=== PATIENT | male | born 1980 | race Caucasian/White ===

== ENCOUNTER 2016-11-25 18:54 | Emergency (ER) | payer OTHER ==
[2016-11-25] MEDS ORDERED: CLEOCIN 150 MG CAPSULE PO ONE (19:13)
--- NOTE | 2016-11-25 19:14 | ERPHSYRPT ---
- History of Present Illness Time Seen by Provider: 11/25/16 19:05 Source: patient Exam Limitations: no limitations Patient Subjective Stated Complaint: "I have had this irritation on my head for about 5 months and it is really itchy and irritating. I also have these jesenia in my shoulder that have been there for about 6 months." Triage Nursing Assessment: Pt alert and oriented X 3, skin pwd pt ambulates without difficutly, able to speak in full sentences. redness noted opn pt head. Physician History: FOR THE PAST 5 MONTHS PT HAS HAD A PRURITIC RASH ON THE SCALP AND EARACHES FOR THE PAST 9 MONTHS. PT DENIES FEVER, VOMITING, CHEST PAIN, SHORTNESS OF AIR. Allergies/Adverse Reactions: codeine [Codeine] Allergy (Intermediate, Verified 02/05/16 17:31) Hives Penicillins Allergy (Intermediate, Verified 11/25/16 19:08) Irregular Heart Beat irregular heart beat, hives Hx Tetanus, Diphtheria Vaccination/Date Given: Yes Hx Influenza Vaccination/Date Given: No Hx Pneumococcal Vaccination/Date Given: No Immunizations Up to Date: Yes - Review of Systems Constitutional: No Fever Ears, Nose, & Throat: Ear Pain Respiratory: No Dyspnea Cardiac: No Chest Pain Skin: Pruritis, Rash (ON SCALP) All Other Systems: Reviewed and Negative - Past Medical History Pertinent Past Medical History: Yes Neurological History: No Pertinent History ENT History: No Pertinent History Cardiac History: No Pertinent History Respiratory History: No Pertinent History Endocrine Medical History: No Pertinent History Musculoskeletal History: Other GI Medical History: No Pertinent History History: No Pertinent History Psycho-Social History: No Pertinent History Male Reproductive Disorders: No Pertinent History Other Medical History: 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, 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 - Past Surgical History Past Surgical History: No Neuro Surgical History: No Pertinent History Cardiac: No Pertinent History Respiratory: No Pertinent History Gastrointestinal: No Pertinent History Genitourinary: No Pertinent History Musculoskeletal: No Pertinent History Male Surgical History: No Pertinent History - Social History Smoking Status: Never smoker How long have you smoked: 26 yrs Exposure to second hand smoke: No Drug Use: narcotics Patient Lives Alone: Yes - Nursing Vital Signs Nursing Vital Signs: Initial Vital Signs Temperature 97.9 F 11/25/16 18:58 Pulse Rate 67 11/25/16 18:58 Respiratory Rate 18 11/25/16 18:58 Blood Pressure 143/97 11/25/16 18:58 O2 Sat by Pulse Oximetry 99 11/25/16 18:58 Pain Scale Pain Intensity 0 - Physical Exam General Appearance: alert Eye Exam: PERRL/EOMI Ears, Nose, Throat Exam: TMs normal, moist mucous membranes, pharyngeal erythema Neck Exam: full range of motion Respiratory Exam: lungs clear Cardiovascular Exam: normal heart sounds Back Exam: normal range of motion Extremity Exam: No pedal edema Neurologic Exam: alert, cooperative Skin Exam: rash (ERYTHEMATOUS SCABBED LESIONS ON SCALP LEFT > OCCIPUT.), other ( HEALED SCAR ON RIGHT UPPER CHEST.) SpO2 Interpretation: normal SpO2: 99 Oxygen Delivery: Room Air - Course Nursing assessment & vital signs reviewed: Yes Ordered Tests: Active Orders 24 hr Category Date Time Status Suture, Staple Removal .as ordered Care 11/25/16 19:05 Active Medication Summary Discontinued Medications Generic Name Dose Route Start Last Admin Trade Name Freq PRN Reason Stop Dose Admin Clindamycin HCl 300 mg 11/25/16 19:13 Cleocin 150 Mg Capsule PO 11/25/16 19:14 STAT ONE - Departure Time of Disposition: 19:27 Departure Disposition: Home Clinical Impression: IMPETIGO, PHARYNGITIS Condition: Stable Critical Care Time: No Referrals: ALEXANDER GARCIA [Primary Care Provider] - Instructions: Impetigo, Pharyngitis/Tonsillopharyngitis -- Adult Additional Instructions: FOLLOW UP WITH PRIVATE DOCTOR TOMORROW. Prescriptions: Hydroxyzine HCl 25 mg [Atarax 25 mg] 25 mg PO Q4H PRN PRN #30 tablet PRN Reason: Itching Clindamycin HCl 300 mg PO Q6H #40 capsule
[2016-11-25] MEDS ORDERED: CLEOCIN 150 MG CAPSULE ONE (19:18)
[2016-11-25 19:36] VITALS: BP 128/70; PULSE 89; O2SAT 100
== END 2016-11-25 19:39 | disposition home or self-care (01) ==
LOC: ED 18:54
DX: L01.00 Impetigo, unspecified (principal); J02.9 Acute pharyngitis, unspecified
CPT/HCPCS: 99283; A9270-GY

== ENCOUNTER 2016-12-24 00:46 | Emergency (ER) | payer OTHER ==
--- NOTE | 2016-12-24 01:05 | ERPHSYRPT ---
- History of Present Illness Time Seen by Provider: 12/24/16 00:59 Source: patient Physician History: 36-year-old white male arrives with complaint of a large lesion on his right forearm distally and on the radial aspect symptoms for 4 days patient states he scraped his arm against some wood 4 days ago. She complains of pain in the right forearm erythematous the right forearm he has approximately 3 cm raised lesion on the right distal forearm radial aspect with surrounding erythema. He states he has not had any fevers. Patient does state that he had been on clindamycin recently but is not taking it routinely. Past medical history includes hepatitis, IV drug use,. Patient has had a history of a forklift accident with spleen and liver damage in the past. Past surgical history is negative Occurred: days ago (4 days ago) Method of Injury: other (abraded right forearm on piece of wood in his garage 4 days ago) Extremities Pain Location: forearm: right Modifying Factors: Improves With: nothing Associated Symptoms: other (raised erythematous lesion right radial aspect distal forearm), No back pain, No chills, No chest discomfort, No chest pain, No dyspnea, No fever, No jaw pain, No nausea, No neck pain, No sweating, No short of breath, No vomiting Allergies/Adverse Reactions: codeine [Codeine] Allergy (Intermediate, Verified 02/05/16 17:31) Hives Penicillins Allergy (Intermediate, Verified 11/25/16 19:08) Irregular Heart Beat irregular heart beat, hives Hx Tetanus, Diphtheria Vaccination/Date Given: Yes Hx Influenza Vaccination/Date Given: No Hx Pneumococcal Vaccination/Date Given: No - Review of Systems Constitutional: No Fever, No Chills Eyes: No Symptoms Ears, Nose, & Throat: No Symptoms Respiratory: No Cough, No Dyspnea Cardiac: No Chest Pain, No Edema, No Syncope Abdominal/Gastrointestinal: No Abdominal Pain, No Nausea, No Vomiting, No Diarrhea Genitourinary Symptoms: No Dysuria Musculoskeletal: Other (raised lesion right distal forearm) Skin: Other (erythema and raised lesion right distal forearm radial aspect) Neurological: No Dizziness, No Focal Weakness, No Sensory Changes Psychological: No Symptoms Endocrine: No Symptoms All Other Systems: Reviewed and Negative - Past Medical History Pertinent Past Medical History: Yes Neurological History: No Pertinent History ENT History: No Pertinent History Cardiac History: No Pertinent History Respiratory History: No Pertinent History Endocrine Medical History: No Pertinent History Musculoskeletal History: Other GI Medical History: No Pertinent History History: No Pertinent History Psycho-Social History: No Pertinent History Male Reproductive Disorders: No Pertinent History Other Medical History: 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, 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 - Past Surgical History Past Surgical History: No Neuro Surgical History: No Pertinent History Cardiac: No Pertinent History Respiratory: No Pertinent History Gastrointestinal: No Pertinent History Genitourinary: No Pertinent History Musculoskeletal: No Pertinent History Male Surgical History: No Pertinent History - Social History Smoking Status: Never smoker How long have you smoked: 26 yrs Exposure to second hand smoke: No Drug Use: narcotics Patient Lives Alone: Yes - Nursing Vital Signs Nursing Vital Signs: Initial Vital Signs Temperature 97.9 F 12/24/16 00:48 Pulse Rate 80 12/24/16 00:48 Respiratory Rate 18 12/24/16 00:48 Blood Pressure 125/65 12/24/16 00:48 O2 Sat by Pulse Oximetry 98 12/24/16 00:48 Pain Scale Pain Intensity 7 - Physical Exam General Appearance: mild distress Eyes, Ears, Nose, Throat Exam: moist mucous membranes Neck Exam: non-tender, supple Cardiovascular/Respiratory Exam: chest non-tender, normal breath sounds, regular rate/rhythm, no respiratory distress Abdominal Exam: non-tender, No guarding Back Exam: normal inspection, No vertebral tenderness Shoulder Exam: normal inspection, non-tender, no evidence of injury, normal ROM Elbow/Forearm Exam: No normal inspection (patient with alarge raisederythematous lesion radial aspect distal right forearm surrounding erythema and edema) Wrist Exam: normal inspection, non-tender, no evidence of injury, normal ROM Hand Exam: normal inspection, non-tender, no evidence of injury, normal ROM Neuro/Tendon Exam: normal sensation, normal motor functions Mental Status Exam: alert, oriented x 3, cooperative Skin Exam: other (3 cm raised area right distal forearm radial aspect with surrounding erythema) SpO2 Interpretation: normal (99%) - Course Nursing assessment & vital signs reviewed: Yes Ordered Tests: Active Orders 24 hr Category Date Time Status IV Insertion STAT Care 12/24/16 00:58 Active BLOOD CULTURE Stat Lab 12/24/16 01:06 Ordered BMP Stat Lab 12/24/16 01:06 Ordered CBC W DIFF Stat Lab 12/24/16 01:06 Ordered CULTURE,WOUND Stat Lab 12/24/16 01:06 Ordered Medication Summary Generic Name Dose Route Start Last Admin Trade Name Freq PRN Reason Stop Dose Admin Vancomycin HCl 250 mls @ 167 mls/hr 12/24/16 01:26 Vancomycin 1gm/ Ns 250ml IV 12/24/16 02:55 STAT ONE Discontinued Medications Generic Name Dose Route Start Last Admin Trade Name Freq PRN Reason Stop Dose Admin Lidocaine HCl 5 ml 12/24/16 01:06 Xylocaine 1% Hcl 20 Ml Mdv IJ 12/24/16 01:07 STAT ONE Lidocaine HCl Confirm 12/24/16 01:19 Xylocaine 1% Hcl 20 Ml Mdv Administered 12/24/16 01:20 Dose 1 ml .ROUTE .STK-MED ONE - Progress Progress: improved Progress Note: 12/24/16 01:04 This is a 36-year-old white male with history of prior IV drug use and hepatitis he arrives with a large 3 cm raised area on his right distal forearm radial aspect symptoms for 4 days he states he abraded this on wood in the garage, he denies IV drug use recently. Patient does have surrounding erythema to the area he is already on clindamycin but he has not been taking this regularly. Will go ahead and clean the area obtain blood culture CBC BMP wound cultures and attempt to open the area I need to get a. 12/24/16 01:23 Procedure I and D abscess. Right forearm. Abscess is sterilely cleansed by nurse. Abscess is anesthetized with 1% lidocaine. 18-gauge needle was used to aspirate a moderate amount of serosanguineous fluid. #11 blade was used to place approximately 1.5 cm incision into the abscess. Abscess was drained by gentle pressure. Wound is cleansed and dressing is applied by nurse. 12/24/16 01:25 patient is up-to-date on his tetanus last tetanus was one year ago - Departure Time of Disposition: 01:25 Departure Disposition: Home Clinical Impression: 3 cm abscess right forearm, Encounter for incision and drainage procedure Condition: Fair Critical Care Time: No Referrals: ALEXANDER GARCIA [Primary Care Provider] - Additional Instructions: Return home. Clean area daily and apply bacitracin until healed. Continue clindamycin as prescribed earlier by Dr. Landers. Follow-up with Dr. Garcia call tomorrow for an appointment. Return for acute distress or for severe symptoms, [place] 5/325 #10 one orally every 4-6 hours as needed for pain, Prescriptions: Hydrocodone Bit/Acetaminophen [[place] 5/325Mg] 1 tab PO Q4-6HPRN PRN #10 tablet PRN Reason: Pain
[2016-12-24] MEDS ORDERED: XYLOCAINE 1% HCL 20 ML MDV IJ ONE (01:06)
[2016-12-24] MEDS ORDERED: XYLOCAINE 1% HCL 20 ML MDV ONE (01:19)
[2016-12-24] MEDS ORDERED: Vancomycin 1GM/ Ns 250ML*** 250 ML IV ONE ×2 (01:26→01:31)
[2016-12-24 01:53] LABS: BASOPHIL % 0.2 % (0.0-0.4); Eosinophil % 2.2 % (0.00-5.0); Granulocytes % 68.4 % (36.0-66.0); Lymphocytes % 23.1 % (24.0-44.0); Mean Cell Volume 88.7 fl (78-100); Mean Corpuscular Hemoglobin 29.8 pg (26-32); Mean Platelet Volume 9.1 fl (6-9.5); Monocytes % 6.1 % (0.0-12.0); Platelet Count 321 K/mm3 (150-450); Red Blood Count 4.06 M/mm3 (4.1-5.6); Red Cell Distribution Width 12.9 % (11.5-14.0); White Blood Count 9.3 K/mm3 (4.0-10.5)
[2016-12-24 02:06] LABS: ANION GAP 11.6 MEQ/L (5-15); BLOOD UREA NITROGEN 11 mg/dL (9-20); CHLORIDE 102 mEq/L (98-107); Carbon Dioxide 26.5 mEq/L (21-32); Glucose 94 MG/DL (70-110); Potassium 3.8 mEq/L (3.5-5.1); SODIUM 136 mEq/L (136-145)
[2016-12-24] MEDS ORDERED: NORCO 5/325 MG PO ONE (02:12)
[2016-12-24 02:34] VITALS: O2SAT 99
[2016-12-24] MEDS ORDERED: NORCO 5/325 MG ONE (02:41)
[2016-12-24 03:25] VITALS: BP 118/70; PULSE 87
== END 2016-12-24 03:29 | disposition home or self-care (01) ==
LOC: ED 00:46
PROC: 0H9DXZZ Drainage of Right Lower Arm Skin, External Approach (ICD-10-PCS; principal; 2016-12-24)
DX: L02.413 Cutaneous abscess of right upper limb (principal)
CPT/HCPCS: 10060; 36000; 36415; 80048; 85025; 87040; 87070; 87077; 96365; 99284; J3370; A9270-GY

== ENCOUNTER 2016-12-27 16:20 | Emergency (ER) | payer OTHER ==
[2016-12-27] MEDS ORDERED: Sodium Chloride 0.9% 1000 ML 1,000 ML IV STA (16:44)
--- NOTE | 2016-12-27 17:07 | ERPHSYRPT ---
- History of Present Illness Time Seen by Provider: 12/27/16 17:02 Source: patient, EMS Exam Limitations: no limitations Patient Subjective Stated Complaint: pt brought to ed per ems-ems called to scene due to mother finding pt unresponsive et not breathing-narcan 2 mg intransal administered-pt woke up et responded well-pt reports finding a fentanyl patch-crushing it up et injecting it Triage Nursing Assessment: pt pale warm et dry upon arrival to [id number] to answer all questions correctly-various sores noted to pt head et face-pupils sluggish but responsive-pt able to move all extemities with ease Physician History: 36-year-old male with long history of narcotics abuse was injecting fentanyl patch, his mother saw him doing that, so she called ambulance. Ambulance medical psychotherapist on the way to the emergency room, gave him 2 ampules of Narcan, which made patient's low bit more coherent. While sitting in ER. Patient is alert, awake and was able to answer the questions. Patient has a long history of narcotic and other illicit drug abuse, history. He denies any other symptoms. Timing/Duration: today Associated Symptoms: denies symptoms Previous symptoms: same symptoms as today Allergies/Adverse Reactions: codeine [Codeine] Allergy (Intermediate, Verified 12/27/16 16:28) Hives Penicillins Allergy (Intermediate, Verified 12/27/16 16:28) Irregular Heart Beat irregular heart beat, hives Hx Tetanus, Diphtheria Vaccination/Date Given: Yes Hx Influenza Vaccination/Date Given: No Hx Pneumococcal Vaccination/Date Given: No Immunizations Up to Date: Yes - Past Medical History Pertinent Past Medical History: Yes Neurological History: No Pertinent History ENT History: No Pertinent History Cardiac History: No Pertinent History Respiratory History: No Pertinent History Endocrine Medical History: No Pertinent History Musculoskeletal History: Other GI Medical History: No Pertinent History History: No Pertinent History Psycho-Social History: No Pertinent History Male Reproductive Disorders: No Pertinent History Other Medical History: 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, - Past Surgical History Past Surgical History: No Neuro Surgical History: No Pertinent History Cardiac: No Pertinent History Respiratory: No Pertinent History Gastrointestinal: No Pertinent History Genitourinary: No Pertinent History Musculoskeletal: No Pertinent History Male Surgical History: No Pertinent History - Social History Smoking Status: Never smoker How long have you smoked: 26 yrs Exposure to second hand smoke: No Drug Use: methamphetamines, narcotics Patient Lives Alone: Yes - Review of Systems Constitutional: Lethargy Eyes: No Symptoms Ears, Nose, & Throat: No Symptoms Respiratory: No Symptoms Cardiac: No Symptoms Abdominal/Gastrointestinal: No Symptoms Genitourinary Symptoms: No Symptoms Musculoskeletal: No Symptoms Skin: No Symptoms Neurological: No Symptoms Psychological: No Symptoms Endocrine: No Symptoms Hematologic/Lymphatic: No Symptoms Immunological/Allergic: No Symptoms - Nursing Vital Signs Nursing Vital Signs: Initial Vital Signs Pulse Rate 87 12/27/16 16:22 Respiratory Rate 18 12/27/16 16:22 Blood Pressure 124/77 12/27/16 16:22 O2 Sat by Pulse Oximetry 97 12/27/16 16:22 Pain Scale Pain Intensity 0 - Physical Exam General Appearance: mild distress Eyes, Ears, Nose, Throat Exam: normal ENT inspection Neck Exam: normal inspection Respiratory Exam: normal breath sounds Cardiovascular Exam: regular rate/rhythm Gastrointestinal/Abdominal Exam: soft Extremities Exam: normal inspection Current Suicidality: denies suicide plan Neurological Exam: alert, calm Appearance: disheveled Behavior/Eye Contact/Speech: alert & cooperative Thoughts/Hallucinations: no apparent hallucination Skin Exam: normal color SpO2 Interpretation: normal SpO2: 97 Oxygen Delivery: Room Air - Course Nursing assessment & vital signs reviewed: Yes Ordered Tests: Active Orders 24 hr Category Date Time Status ACETAMINOPHEN Stat Lab 12/27/16 16:55 Completed CBC W DIFF Stat Lab 12/27/16 16:55 Completed CMP Stat Lab 12/27/16 16:55 Completed ETHYL ALCOHOL Stat Lab 12/27/16 16:55 Completed Lactic Acid Stat Lab 12/27/16 16:58 Completed SALICYLATE Stat Lab 12/27/16 16:55 Completed UA W/RFX UR CULTURE Stat Lab 12/27/16 18:00 Completed Urine Triage Profile Stat Lab 12/27/16 18:00 Received Medication Summary Discontinued Medications Generic Name Dose Route Start Last Admin Trade Name Freq PRN Reason Stop Dose Admin Sodium Chloride 1,000 mls @ 999 mls/hr 12/27/16 16:44 12/27/16 16:48 Sodium Chloride 0.9% 1000 Ml IV 12/27/16 17:44 999 mls/hr .Q1H1M STA Administration Sodium Chloride Confirm 12/27/16 17:15 Sodium Chloride 0.9% 1000 Ml Administered 12/27/16 17:16 Dose 1,000 mls @ ud .ROUTE .STK-MED ONE Lab/Rad Data: Laboratory Result Diagrams 12/27/16 16:55 12/27/16 16:55 Laboratory Results 12/27/16 12/27/16 12/27/16 Range/Units 18:00 16:58 16:55 WBC (4.0-10.5) K/mm3 RBC (4.1-5.6) M/mm3 Hgb (12.5-18.0) gm/dl Hct (42-50) % MCV (78-100) fl MCH (26-32) pg MCHC (32-36) g/dl RDW (11.5-14.0) % Plt Count (150-450) K/mm3 MPV (6-9.5) fl Gran % (36.0-66.0) % Lymphocytes % (24.0-44.0) % Monocytes % (0.0-12.0) % Eosinophils % (0.00-5.0) % Basophils % (0.0-0.4) % Basophils # (0-0.4) Sodium 139 (136-145) mEq/L Potassium 4.1 (3.5-5.1) mEq/L Chloride 103 (98-107) mEq/L Carbon Dioxide 28.1 (21-32) mEq/L Anion Gap 11.6 (5-15) MEQ/L BUN 12 (9-20) mg/dL Creatinine 0.87 (0.55-1.30) mg/dl Estimated GFR > 60 ML/MIN Glucose 113 H (70-110) MG/DL Lactic Acid 1.0 (0.4-2.0) Calcium 9.2 (8.5-10.1) mg/dL Total Bilirubin 0.40 (0.2-1.0) mg/dL AST 34 (15-37) U/L ALT 42 (12-78) U/L Alkaline Phosphatase 82 (46-116) U/L Serum Total Protein 7.8 (6.4-8.2) gm/dL Albumin 3.3 L (3.4-5.0) g/dL Ur Collection Type CLEAN CATCH Urine Color YELLOW (YELLOW) Urine Appearance CLEAR (CLEAR) Urine pH 8.0 (5-6) Ur Specific [place] 1.005 (1.005-1.025) Urine Protein NEGATIVE (Negative) Urine Ketones NEGATIVE (NEGATIVE) Urine Blood NEGATIVE (0-5) Pravin/ul Urine Nitrite NEGATIVE (NEGATIVE) Urine Bilirubin NEGATIVE (NEGATIVE) Urine Urobilinogen 1 (0-1) mg/dL Ur Leukocyte Esterase NEGATIVE (NEGATIVE) Urine Glucose NEGATIVE (NEGATIVE) mg/dL Salicylates < 2.8 L (2.8-20.0) mg/dl Acetaminophen < 2.0 L (10-30) ug/ml Ethyl Alcohol < 0.010 (0.00-0.01) % Specimen Received 12/27/16:1805 12/27/16 Range/Units 16:55 WBC 5.1 (4.0-10.5) K/mm3 RBC 3.97 L (4.1-5.6) M/mm3 Hgb 11.8 L (12.5-18.0) gm/dl Hct 35.5 L (42-50) % MCV 89.4 (78-100) fl MCH 29.7 (26-32) pg MCHC 33.2 (32-36) g/dl RDW 13.0 (11.5-14.0) % Plt Count 320 (150-450) K/mm3 MPV 8.5 (6-9.5) fl Gran % 62.3 (36.0-66.0) % Lymphocytes % 26.0 (24.0-44.0) % Monocytes % 7.8 (0.0-12.0) % Eosinophils % 3.3 (0.00-5.0) % Basophils % 0.6 (0.0-0.4) % Basophils # 0.03 (0-0.4) Sodium (136-145) mEq/L Potassium (3.5-5.1) mEq/L Chloride (98-107) mEq/L Carbon Dioxide (21-32) mEq/L Anion Gap (5-15) MEQ/L BUN (9-20) mg/dL Creatinine (0.55-1.30) mg/dl Estimated GFR ML/MIN Glucose (70-110) MG/DL Lactic Acid (0.4-2.0) Calcium (8.5-10.1) mg/dL Total Bilirubin (0.2-1.0) mg/dL AST (15-37) U/L ALT (12-78) U/L Alkaline Phosphatase (46-116) U/L Serum Total Protein (6.4-8.2) gm/dL Albumin (3.4-5.0) g/dL Ur Collection Type Urine Color (YELLOW) Urine Appearance (CLEAR) Urine pH (5-6) Ur Specific [place] (1.005-1.025) Urine Protein (Negative) Urine Ketones (NEGATIVE) Urine Blood (0-5) Pravin/ul Urine Nitrite (NEGATIVE) Urine Bilirubin (NEGATIVE) Urine Urobilinogen (0-1) mg/dL Ur Leukocyte Esterase (NEGATIVE) Urine Glucose (NEGATIVE) mg/dL Salicylates (2.8-20.0) mg/dl Acetaminophen (10-30) ug/ml Ethyl Alcohol (0.00-0.01) % Specimen Received - Progress Progress: improved Progress Note: 12/27/16 17:53 Patient is much more alert, awake. He is counseled about not using IV narcotics. Patient states with his mother and his 2 children. Patient understood consequences about using illicit drugs. [facility] phone number given for to join rehabilitation. Verbalize instructions understood. Discussed with : Ariel Will see patient in: hospital (observation) Counseled pt/family regarding: drug and/or alcohol abuse, diagnosis, smoking cessation - Departure Time of Disposition: 17:55 Departure Disposition: Observation Clinical Impression: Illicit drug use, Narcotic abuse Condition: Stable Critical Care Time: Yes Critical Care Time(excluding separately billable procedures): 30-74 minutes Referrals: ALEXANDER GARCIA [Primary Care Provider] - Followup in 3 days w/ PCP Instructions: Drug Abuse and Drug Addiction Additional Instructions: Your strongly advised not to abuse narcotics. Please follow up at [facility] for rehabilitation. Follow-up with your physician in next 1-2 days. If your symptoms recur, come back to the emergency room. Prescriptions: Doxycycline Hyclate 100 mg PO BID #20 tablet
[2016-12-27 17:08] LABS: BASOPHIL % 0.6 % (0.0-0.4); Eosinophil % 3.3 % (0.00-5.0); Granulocytes % 62.3 % (36.0-66.0); Mean Cell Volume 89.4 fl (78-100); Mean Corpuscular Hemoglobin 29.7 pg (26-32); Mean Platelet Volume 8.5 fl (6-9.5); Monocytes % 7.8 % (0.0-12.0); Platelet Count 320 K/mm3 (150-450); Red Blood Count 3.97 M/mm3 (4.1-5.6); White Blood Count 5.1 K/mm3 (4.0-10.5)
[2016-12-27] MEDS ORDERED: Sodium Chloride 0.9% 1000 ML 1,000 ML ONE (17:15)
[2016-12-27 17:26] LABS: ALBUMIN 3.3 g/dL (3.4-5.0); ALKALINE PHOSPHATASE 82 U/L (46-116); ANION GAP 11.6 MEQ/L (5-15); BLOOD UREA NITROGEN 12 mg/dL (9-20); CHLORIDE 103 mEq/L (98-107); Carbon Dioxide 28.1 mEq/L (21-32); ETHYL ALCOHOL < 0.010 % (0.00-0.01); Glucose 113 MG/DL (70-110); Potassium 4.1 mEq/L (3.5-5.1); SGOT/AST 34 U/L (15-37); SGPT/ALT 42 U/L (12-78); SODIUM 139 mEq/L (136-145); Total Protein 7.8 gm/dL (6.4-8.2)
[2016-12-27 17:37] LABS: ACETAMINOPHEN < 2.0 ug/ml (10-30)
[2016-12-27 18:13] LABS: ADD URINE CULTURE? NO (NO); Bilirubin NEGATIVE (NEGATIVE); Blood NEGATIVE Ery/ul (0-5); COMPLETE URINE MICROSCOPIC? NO; Collection Type CLEAN CATCH; Glucose NEGATIVE (NEGATIVE); Leukocyte Esterase NEGATIVE (NEGATIVE)
[2016-12-27 18:40] VITALS: BP 126/64; PULSE 78; O2SAT 98
== END 2016-12-27 18:38 | disposition home or self-care (01) ==
LOC: ED 16:20
DX: F19.90 Other psychoactive substance use, unspecified, uncomplicated (principal); F11.10 Opioid abuse, uncomplicated; Z87.898 Personal history of other specified conditions
CPT/HCPCS: 36415; 80053; 80307; 81002; 83605; 85025; 96360; 99284; G0481

== ENCOUNTER 2017-09-09 23:36 | Emergency (ER) | payer OTHER, SELFPAY ==
[2017-09-10 00:17] VITALS: BP 114/78; PULSE 88; O2SAT 98
[2017-09-10] MEDS ORDERED: KEFLEX 500 MG PO ONE (00:35)
[2017-09-10] MEDS ORDERED: KEFLEX 500 MG ONE (00:38)
--- NOTE | 2017-09-10 00:47 | ERPHSYRPT ---
- History of Present Illness Time Seen by Provider: 09/10/17 00:15 Source: patient Exam Limitations: clinical condition Patient Subjective Stated Complaint: pt states he was shaving his head and noticed a rash all over his head and down the back of his neck; pt states it has been intermittently going on for months, seen his family dr for it and dx as staph; pt has not followed-up with dr nor treated rash since onset. Triage Nursing Assessment: pt a&o x3; skin p, w, & d; no other distress or discomfort noted. Physician History: PATIENT WITH A HISTORY OF OPIATE ABUSE STATES HE HAS HAD A RASH ASSOCIATED WITH ITCHING AFTER SHAVING HIS HEAD FOR 1 YEAR. DENIES ITCHING OR DRAINAGE FROM SCALP. Timing/Duration: other (1 YEAR) Quality: itchy Severity: moderate Location: scalp Possible Causes: no cause identified Associated Symptoms: change in skin texture Allergies/Adverse Reactions: codeine [Codeine] Allergy (Intermediate, Verified 09/10/17 00:16) Hives Penicillins Allergy (Intermediate, Verified 09/10/17 00:16) Irregular Heart Beat irregular heart beat, hives Hx Tetanus, Diphtheria Vaccination/Date Given: Yes Hx Influenza Vaccination/Date Given: No Hx Pneumococcal Vaccination/Date Given: Yes Immunizations Up to Date: Yes - Review of Systems Constitutional: No Fever, No Chills Eyes: No Symptoms Ears, Nose, & Throat: No Symptoms Respiratory: No Cough, No Dyspnea Cardiac: No Chest Pain, No Edema, No Syncope Abdominal/Gastrointestinal: No Abdominal Pain, No Nausea, No Vomiting, No Diarrhea Genitourinary Symptoms: No Dysuria Musculoskeletal: No Back Pain, No Neck Pain Skin: Skin Lesions, No Rash Neurological: No Dizziness, No Focal Weakness, No Sensory Changes All Other Systems: Reviewed and Negative - Past Medical History Pertinent Past Medical History: Yes Neurological History: No Pertinent History ENT History: No Pertinent History Cardiac History: No Pertinent History Respiratory History: No Pertinent History Endocrine Medical History: No Pertinent History Musculoskeletal History: Other GI Medical History: No Pertinent History History: No Pertinent History Psycho-Social History: No Pertinent History Male Reproductive Disorders: No Pertinent History Other Medical History: 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, - Past Surgical History Past Surgical History: No Neuro Surgical History: No Pertinent History Cardiac: No Pertinent History Respiratory: No Pertinent History Gastrointestinal: No Pertinent History Genitourinary: No Pertinent History Musculoskeletal: No Pertinent History Male Surgical History: No Pertinent History - Social History Smoking Status: Current every day smoker How long have you smoked: 27 years Exposure to second hand smoke: No Drug Use: narcotics Patient Lives Alone: No - Nursing Vital Signs Nursing Vital Signs: Initial Vital Signs Temperature 98.1 F 09/10/17 00:09 Pulse Rate 88 09/10/17 00:09 Respiratory Rate 18 09/10/17 00:09 Blood Pressure 114/78 09/10/17 00:09 O2 Sat by Pulse Oximetry 98 09/10/17 00:09 Pain Scale Pain Intensity 0 - Physical Exam SpO2: 98 Oxygen Delivery: Room Air Ordered Tests: Medication Summary Discontinued Medications Generic Name Dose Route Start Last Admin Trade Name Freq PRN Reason Stop Dose Admin Cephalexin HCl 500 mg 09/10/17 00:35 09/10/17 00:41 Keflex 500 Mg PO 09/10/17 00:36 500 mg STAT ONE Administration - Progress Progress Note: 09/10/17 00:47 ADMINISTERED KEFLEX 500MG ORALLY - Departure Time of Disposition: 00:55 Departure Disposition: Home Clinical Impression: SCALP FOLLICULITIS Condition: Stable Critical Care Time: No Referrals: ALEXANDER GARCIA [Primary Care Provider] - Additional Instructions: ANTIBIOTIC OMNICEF 300MG TWICE DAILY FOR 10 DAYS. APPLY CLOTRIMAZOLE CREAM OVER SCALP TWICE DAILY FOR 1 WEEK. CONSULT YOUR PRIMARY CARE PROVIDER FOR REFERRAL TO PRODUCT SUPPORT REPRESENTATIVE. Prescriptions: Cefdinir [Omnicef 300 mg] 300 mg PO BID #20 capsule Clotrimazole Cream 30 gm [Lotrimin Cream 30 gm] 30 gm TP BID #1 cream
== END 2017-09-10 01:20 | disposition home or self-care (01) ==
LOC: ED 23:36
DX: L73.9 Follicular disorder, unspecified (principal)
CPT/HCPCS: 99283; A9270-GY

== ENCOUNTER 2018-05-14 15:33 | Emergency (ER) | payer OTHER ==
[2018-05-14 16:19] VITALS: BP 131/87; PULSE 86; O2SAT 96
[2018-05-14] MEDS ORDERED: BACIGUENT PACKET TP ONE (16:38)
[2018-05-14] MEDS ORDERED: BACIGUENT PACKET ONE (16:51)
--- NOTE | 2018-05-14 17:16 | ERPHSYRPT ---
- History of Present Illness Source: patient Exam Limitations: no limitations Patient Subjective Stated Complaint: thinks a parasite is living inside him, states that he sees them moving on his head, face and back Triage Nursing Assessment: Pt c/o of sores all over his head and on his forehead and face and back that he continues to scratch because he thinks there is a parasite living inside him, he says that he can see them move through his skin, he states that when you scratch at them that they constrict up and then will move away, he has open wounds on his left brow, right brow, and on his head , he has scars all over his head where he has been scratching for a while, he states that this has been going on for 2 years, he said that he was given vancomycin once and it cleared everything up but about 2 days later it all came back, he says that they itch extremely bad and they are on his back as well, this nurse doesn't see anything moving, vitals wnl, denies pain just that it's uncomfortable, does narcotics on a daily basis Physician History: Pt is a 37 y/o male that presented to the ER complaining of a parasite infestation, under his skin. Pt states, he can feel the worms/bugs crawling under his skin, and is trying to catch them, and get them out of his body, by picking at his skin. Pt states, tried to shave his head and face, but he can't get rid of those. Pt refusing to talk to tele psych. Timing/Duration: today Quality: itchy Severity: mild Location: scalp, face Possible Causes: other (Pt is picking at himself.) Modifying Factors: Improves With: scratching Allergies/Adverse Reactions: codeine [Codeine] Allergy (Intermediate, Verified 05/14/18 16:19) Hives Penicillins Allergy (Intermediate, Verified 05/14/18 16:19) Irregular Heart Beat irregular heart beat, hives Home Medications: No Reportable Medications [No Reported Medications] 05/14/18 [History] Hx Tetanus, Diphtheria Vaccination/Date Given: Yes Hx Influenza Vaccination/Date Given: No Hx Pneumococcal Vaccination/Date Given: Yes - Review of Systems Constitutional: No Fever, No Chills Respiratory: No Cough, No Dyspnea Cardiac: No Chest Pain, No Edema, No Syncope Skin: Skin Lesions, Other (on scalp, face and around the ears) Psychological: Drug Abuse - Past Medical History Pertinent Past Medical History: Yes Neurological History: No Pertinent History ENT History: No Pertinent History Cardiac History: No Pertinent History Respiratory History: No Pertinent History Endocrine Medical History: No Pertinent History Musculoskeletal History: Other GI Medical History: No Pertinent History History: No Pertinent History Psycho-Social History: No Pertinent History Male Reproductive Disorders: No Pertinent History Other Medical History: 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, ran over by a fork lift that crushed right side of body that 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 but didn't need it removed - Past Surgical History Past Surgical History: No Neuro Surgical History: No Pertinent History Cardiac: No Pertinent History Respiratory: No Pertinent History Gastrointestinal: No Pertinent History Genitourinary: No Pertinent History Musculoskeletal: No Pertinent History Male Surgical History: No Pertinent History - Social History Smoking Status: Current every day smoker How long have you smoked: 27 years Exposure to second hand smoke: Yes Drug Use: marijuana, narcotics Patient Lives Alone: No - Nursing Vital Signs Nursing Vital Signs: Initial Vital Signs Temperature 98.5 F 05/14/18 15:50 Pulse Rate 86 05/14/18 15:50 Blood Pressure 131/87 05/14/18 15:50 O2 Sat by Pulse Oximetry 96 05/14/18 15:50 Pain Scale Pain Intensity 0 - Physical Exam General Appearance: other (Pt has hallucinations visual and tactile. He refuses to talk to psych.) Skin Exam: other (lesions on scalp, face and around the ears, that are self inflicted.) SpO2 Interpretation: normal SpO2: 96 - Course Nursing assessment & vital signs reviewed: Yes Ordered Tests: Medication Summary Discontinued Medications Generic Name Dose Route Start Last Admin Trade Name Shadq PRN Reason Stop Dose Admin Bacitracin Zinc 0.9 gm 05/14/18 16:38 05/14/18 17:00 Baciguent Packet TP 05/14/18 16:39 0.9 gm STAT ONE Administration Bacitracin Zinc Confirm 05/14/18 16:51 Baciguent Packet Administered 05/14/18 16:52 Dose 1 gm .ROUTE .STK-MED ONE - Progress Progress: unchanged Will see patient in: office (Avoid drug abuse. Avoid picking at lesions. F/U with PCP.) - Departure Time of Disposition: 17:17 Departure Disposition: Home Clinical Impression: Picking own skin Condition: Stable Critical Care Time: No Referrals: ALEXANDER GARCIA [Primary Care Provider] - Additional Instructions: Keep lesions clean and dry and avoid picking at lesions.
== END 2018-05-14 17:30 | disposition home or self-care (01) ==
LOC: ED 15:33
DX: F42.4 Excoriation (skin-picking) disorder (principal); R44.1 Visual hallucinations; R44.2 Other hallucinations
CPT/HCPCS: 99283; A9270-GY

== ENCOUNTER 2018-09-19 19:10 | Emergency (ER) | payer OTHER ==
[2018-09-19] MEDS ORDERED: Sodium Chloride 0.9% 1000 ML 1,000 ML IV STA (20:03)
[2018-09-19] MEDS ORDERED: Vancomycin 1GM/ Ns 250ML*** 1 GM/250 ML IVPB IV ONE (20:04)
--- NOTE | 2018-09-19 20:14 | ERPHSYRPT ---
- History of Present Illness Time Seen by Provider: 09/19/18 19:40 Source: patient Patient Subjective Stated Complaint: States been killing spiders in his home 5 days ago 09/14/18, spiders are transulcent, didnt see spider actually bite him but has woken up and been on him. That night he noted small lump on L arm. Worked for few days then started to notice arm swelling, itching and pain in arm. Triage Nursing Assessment: Pt a/o, ambulated per self, L forearm and hand swollen, 2+ edema, forearm red, hot to touch, able to move fingers, cap refill < 2 secs, few small bites noted. 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 DENIES FEVER, CHILLS, NUMBNESS IN FINGERS. Occurred: last week Method of Injury: other (ALLEDGED SPIDER BITE) Quality: constant Severity of Pain-Max: moderate Severity of Pain-Current: moderate Extremities Pain Location: forearm: left Modifying Factors: Improves With: movement Allergies/Adverse Reactions: codeine [Codeine] Allergy (Intermediate, Verified 05/14/18 16:19) Hives Penicillins Allergy (Intermediate, Verified 05/14/18 16:19) Irregular Heart Beat irregular heart beat, hives Home Medications: No Reportable Medications [No Reported Medications] 05/14/18 [History] Hx Tetanus, Diphtheria Vaccination/Date Given: Yes Hx Influenza Vaccination/Date Given: No Hx Pneumococcal Vaccination/Date Given: Yes Immunizations Up to Date: Yes - Review of Systems Constitutional: No Symptoms Ears, Nose, & Throat: Throat Swelling Cardiac: No Symptoms, Palpitations Musculoskeletal: Other (MARKED PAIN, SWELLING REDNESS OF FOREARM) - Past Medical History Pertinent Past Medical History: Yes Neurological History: No Pertinent History ENT History: No Pertinent History Cardiac History: No Pertinent History Respiratory History: No Pertinent History Endocrine Medical History: No Pertinent History Musculoskeletal History: Other GI Medical History: No Pertinent History History: No Pertinent History Psycho-Social History: No Pertinent History Male Reproductive Disorders: No Pertinent History Other Medical History: 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, ran over by a fork lift that crushed right side of body that 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 but didn't need it removed, PNE, "vegitation around heart valve" - Past Surgical History Past Surgical History: Yes Neuro Surgical History: No Pertinent History Cardiac: Cardiac Catheterization Respiratory: No Pertinent History Gastrointestinal: No Pertinent History Genitourinary: No Pertinent History Musculoskeletal: No Pertinent History Male Surgical History: No Pertinent History Other Surgical History: Removed collar bone - Social History Smoking Status: Current every day smoker How long have you smoked: 27 years Exposure to second hand smoke: Yes Drug Use: marijuana, narcotics Patient Lives Alone: No - Nursing Vital Signs Nursing Vital Signs: Initial Vital Signs Temperature 98.8 F 09/19/18 19:26 Pulse Rate 110 H 09/19/18 19:26 Respiratory Rate 16 09/19/18 19:26 Blood Pressure 99/63 09/19/18 19:26 O2 Sat by Pulse Oximetry 98 09/19/18 19:26 Pain Scale Pain Intensity 10 - Physical Exam General Appearance: no apparent distress Cardiovascular/Respiratory Exam: chest non-tender, normal breath sounds, tachycardia Elbow/Forearm Exam: swelling (MARKED SWELLING PROXIMAL LEFT FOREARM, MARKED TENDERNESS, CIRCUMFERENCE 33CM, ERYTHRMA AND SWELLING EXTENDS TO DIGITS AND HAND , LEFT RADIAL PULSE.) Hand Exam: normal inspection SpO2: 98 Ordered Tests: Active Orders 24 hr Category Date Time Status BLOOD CULTURE Stat Lab 09/19/18 20:50 Received BMP Stat Lab 09/19/18 21:10 Completed CBC W DIFF Stat Lab 09/19/18 21:10 Completed Lactic Acid Stat Lab 09/19/18 21:10 Completed Urine Triage Profile Stat Lab 09/19/18 21:50 Completed Medication Summary Discontinued Medications Generic Name Dose Route Start Last Admin Trade Name Shadq PRN Reason Stop Dose Admin Sodium Chloride 1,000 mls @ 999 mls/hr 09/19/18 20:03 09/19/18 23:17 Sodium Chloride 0.9% 1000 Ml IV 09/19/18 21:03 Infused .Q1H1M STA Infusion Vancomycin HCl 1 gm in 250 mls @ 167 mls/hr 09/19/18 20:04 09/19/18 21:15 Vancomycin 1gm/ Ns 250ml IV 09/19/18 21:33 167 mls/hr STAT ONE Administration Sodium Chloride Confirm 09/19/18 20:33 Sodium Chloride 0.9% 1000 Ml Administered 09/19/18 20:34 Dose 1,000 mls @ ud .ROUTE .STK-MED ONE Vancomycin HCl Confirm 09/19/18 20:33 Vancomycin 1gm/ Ns 250ml Administered 09/19/18 20:34 Dose 250 mls @ ud IV .STK-MED ONE Morphine Sulfate 4 mg 09/19/18 22:00 09/19/18 22:08 Morphine Sulfate 4 Mg Inj IV 09/19/18 22:01 4 mg STAT ONE Administration Morphine Sulfate Confirm 09/19/18 22:03 Morphine Sulfate 4 Mg Inj Administered 09/19/18 22:04 Dose 4 mg .ROUTE .STK-MED ONE Ondansetron HCl 4 mg 09/19/18 22:00 09/19/18 22:08 Zofran 4 Mg/2 Ml Vial IV 09/19/18 22:01 4 mg STAT ONE Administration Ondansetron HCl Confirm 09/19/18 22:03 Zofran 4 Mg/2 Ml Vial Administered 09/19/18 22:04 Dose 4 mg .ROUTE .STK-MED ONE Lab/Rad Data: Laboratory Result Diagrams 09/19/18 21:10 09/19/18 21:10 Laboratory Results 09/19/18 09/19/18 09/19/18 Range/Units 21:50 21:10 21:10 WBC (4.0-10.5) K/mm3 RBC (4.1-5.6) M/mm3 Hgb (12.5-18.0) gm/dl Hct (42-50) % MCV (78-100) fl MCH (26-32) pg MCHC (32-36) g/dl RDW (11.5-14.0) % Plt Count (150-450) K/mm3 MPV (6-9.5) fl Gran % (36.0-66.0) % Eos # (Auto) (0-0.5) Absolute Lymphs (auto) (1.0-4.6) Absolute Monos (auto) (0.0-1.3) Lymphocytes % (24.0-44.0) % Monocytes % (0.0-12.0) % Eosinophils % (0.00-5.0) % Basophils % (0.0-0.4) % Absolute Granulocytes (1.4-6.9) Basophils # (0-0.4) Sodium 132 L (137-145) mmol/L Potassium 4.2 (3.5-5.1) mmol/L Chloride 98 (98-107) mmol/L Carbon Dioxide 23 (22-30) mmol/L Anion Gap 16.0 H (5-15) MEQ/L BUN 12 (9-20) mg/dL Creatinine 0.89 (0.66-1.25) mg/dL Estimated GFR > 60.0 ML/MIN Glucose 154 H (74-106) mg/dL Lactic Acid 1.4 (0.4-2.0) Calcium 9.0 (8.4-10.2) mg/dL Urine Opiates Level POSITIVE (NEGATIVE) Ur Methadone NEGATIVE (NEGATIVE) Urine Barbiturates NEGATIVE (NEGATIVE) Ur Phencyclidine (PCP) NEGATIVE (NEGATIVE) Urine Amphetamine POSITIVE (NEGATIVE) U Benzodiazepine Level NEGATIVE (NEGATIVE) Urine Cocaine NEGATIVE (NEGATIVE) Urine Marijuana (THC) POSITIVE (NEGATIVE) 09/19/18 Range/Units 21:10 WBC 15.6 H (4.0-10.5) K/mm3 RBC 3.76 L (4.1-5.6) M/mm3 Hgb 11.5 L (12.5-18.0) gm/dl Hct 33.5 L (42-50) % MCV 89.1 (78-100) fl MCH 30.5 (26-32) pg MCHC 34.3 (32-36) g/dl RDW 14.2 H (11.5-14.0) % Plt Count 306 (150-450) K/mm3 MPV 8.6 (6-9.5) fl Gran % 79.5 H (36.0-66.0) % Eos # (Auto) 0.08 (0-0.5) Absolute Lymphs (auto) 2.02 (1.0-4.6) Absolute Monos (auto) 1.07 (0.0-1.3) Lymphocytes % 13.0 L (24.0-44.0) % Monocytes % 6.9 (0.0-12.0) % Eosinophils % 0.5 (0.00-5.0) % Basophils % 0.1 (0.0-0.4) % Absolute Granulocytes 12.39 H (1.4-6.9) Basophils # 0.01 (0-0.4) Sodium (137-145) mmol/L Potassium (3.5-5.1) mmol/L Chloride (98-107) mmol/L Carbon Dioxide (22-30) mmol/L Anion Gap (5-15) MEQ/L BUN (9-20) mg/dL Creatinine (0.66-1.25) mg/dL Estimated GFR ML/MIN Glucose (74-106) mg/dL Lactic Acid (0.4-2.0) Calcium (8.4-10.2) mg/dL Urine Opiates Level (NEGATIVE) Ur Methadone (NEGATIVE) Urine Barbiturates (NEGATIVE) Ur Phencyclidine (PCP) (NEGATIVE) Urine Amphetamine (NEGATIVE) U Benzodiazepine Level (NEGATIVE) Urine Cocaine (NEGATIVE) Urine Marijuana (THC) (NEGATIVE) - Progress Progress: pain not gone completely Progress Note: 09/19/18 22:05 IV NORMAL SALINE 100ML/HR, ZOFRAN 4MG, MORPHINE 4MG IV, AFTER 2 SETS OF BLOOD CULTURES, VANCOMYCIN 1GM IVPB Discussed with .: Other (DISCUSSED WITH DR FREEMAN AT 2200 ACCEPTS TRANSFER TO [facility]IA [facility]) - Departure Departure Disposition: Transfer Clinical Impression: ABSCESS LEFT FOREARM Condition: Stable Critical Care Time: No Referrals: ALEXANDER GARCIA [Primary Care Provider] -
[2018-09-19] MEDS ORDERED: Vancomycin 1GM/ Ns 250ML*** 250 ML IV ONE (20:33)
[2018-09-19] MEDS ORDERED: Sodium Chloride 0.9% 1000 ML 1,000 ML ONE (20:33)
[2018-09-19 21:16] LABS: BASOPHIL % 0.1 % (0.0-0.4); Basophil (Absolute #) 0.01 (0-0.4); Eosinophil % 0.5 % (0.00-5.0); Eosinophil (Absolute #) 0.08 (0-0.5); Granulocyte Absolute (ANC) 12.39 (1.4-6.9); Granulocytes % 79.5 % (36.0-66.0); Hematocrit 33.5 % (42-50); Hemoglobin 11.5 gm/dl (12.5-18.0); Lymphocyte (Absolute #) 2.02 (1.0-4.6); Mean Cell Volume 89.1 fl (78-100); Mean Corpuscular Hgb Concent. 34.3 g/dl (32-36); Mean Platelet Volume 8.6 fl (6-9.5); Monocyte (Absolute #) 1.07 (0.0-1.3); Monocytes % 6.9 % (0.0-12.0); Platelet Count 306 K/mm3 (150-450); Red Blood Count 3.76 M/mm3 (4.1-5.6); Red Cell Distribution Width 14.2 % (11.5-14.0); White Blood Count 15.6 K/mm3 (4.0-10.5)
[2018-09-19 21:26] LABS: Mean Corpuscular Hemoglobin 30.5 pg (26-32)
[2018-09-19 21:27] LABS: BLOOD UREA NITROGEN 12 mg/dL (9-20); CHLORIDE 98 mmol/L (98-107); Carbon Dioxide 23 mmol/L (22-30); Creatinine 1 0.89 mg/dL (0.66-1.25); Glucose 154 mg/dL (74-106); Potassium 4.2 mmol/L (3.5-5.1); SODIUM 132 mmol/L (137-145)
[2018-09-19] MEDS ORDERED: MORPHINE SULFATE 4 MG INJ IV ONE (22:00)
[2018-09-19] MEDS ORDERED: Zofran 4 MG/2 ML VIAL IV ONE (22:00)
[2018-09-19] MEDS ORDERED: MORPHINE SULFATE 4 MG INJ ONE (22:03)
[2018-09-19] MEDS ORDERED: Zofran 4 MG/2 ML VIAL ONE (22:03)
[2018-09-19 22:19] LABS: Barbiturate,Urine NEGATIVE (NEGATIVE); Benzodiazepine,Urine NEGATIVE (NEGATIVE); Cocaine,Urine NEGATIVE (NEGATIVE); Methadone,Urine NEGATIVE (NEGATIVE); Opiate,Urine POSITIVE (NEGATIVE); PCP,Urine NEGATIVE (NEGATIVE); THC,Urine POSITIVE (NEGATIVE)
[2018-09-19 23:12] LABS: Amphetamine,Urine POSITIVE (NEGATIVE)
[2018-09-19 23:36] VITALS: BP 121/84; PULSE 99; O2SAT 97
== END 2018-09-19 23:34 | disposition short-term general hospital (02) ==
LOC: ED 19:10
DX: L02.414 Cutaneous abscess of left upper limb (principal); Z86.14 Personal history of Methicillin resistant Staphylococcus aureus infection
CPT/HCPCS: 36415; 80048; 80307; 83605; 85025; 87040; 96360; 96365; 96374; 96375; 99285; J2270; J2405; J3370

== ENCOUNTER 2018-11-03 20:53 | Emergency (ER) | payer OTHER ==
[2018-11-03] MEDS ORDERED: Sodium Chloride 0.9% 1000 ML 1,000 ML IV STA (21:20)
[2018-11-03] MEDS ORDERED: Sodium Chloride 0.9% 1000 ML 1,000 ML ONE ×3 (21:20→22:45)
[2018-11-03 21:36] LABS: Hematocrit 26.3 % (42-50); Mean Cell Volume 84.3 fl (78-100); Mean Corpuscular Hemoglobin 28.8 pg (26-32); Mean Corpuscular Hgb Concent. 34.2 g/dl (32-36); Platelet Count 65 K/mm3 (150-450); Red Blood Count 3.12 M/mm3 (4.1-5.6); Red Cell Distribution Width 14.6 % (11.5-14.0); White Blood Count 8.3 K/mm3 (4.0-10.5)
[2018-11-03] MEDS ORDERED: TYLENOL 325 MG PO STA (21:37)
[2018-11-03 21:38] LABS: INR 1.72 (0.8-3.0); PROTIME 19.7 SECONDS (8.83-12.87)
[2018-11-03 21:44] LABS: ALBUMIN 2.8 g/dL (3.5-5.0); ANION GAP 18.2 MEQ/L (5-15); BILIRUBIN,TOTAL 1.2 mg/dL (0.2-1.3); Calcium 7.9 mg/dL (8.4-10.2); Creatinine 1 1.75 mg/dL (0.66-1.25); Potassium 4.4 mmol/L (3.5-5.1); Total Protein 7.8 g/dL (6.3-8.2)
[2018-11-03] MEDS: Sodium Chloride 0.9% 1000 ML 1,000 ML IV SCH ×3 (21:45→22:45)
[2018-11-03] MEDS ORDERED: TYLENOL 325 MG ONE (21:45)
--- NOTE | 2018-11-03 21:45 | ERPHSYRPT ---
- History of Present Illness Time Seen by Provider: 11/03/18 21:20 Source: patient Exam Limitations: clinical condition Patient Subjective Stated Complaint: pt states he has been running a fever for last 2 weeks. mom states as high as 104 at home. c/o pain in lower back, bilat arms, abd difficulty walking. pt states he has been coughing and has been coughing up blood and yellow phlegm. Triage Nursing Assessment: pt alert and oriented, answers questions approp. respirations nonlabored with lungs cta. pt ambulate from wheelchair to stretcher with assist of 2. skin warm and dry. swelling and petichial rash noted to bilat lower ext. scabbing with drsg to lt forearm. 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 Timing/Duration: week(s) (2) Cough Quality/Degree: productive cough Possible Cause: occasional episodes Modifying Factors: Improves With: activity, exertion Associated Symptoms: fever, chills, cough, dizziness International travel in last 2 weeks: No Allergies/Adverse Reactions: codeine [Codeine] Allergy (Intermediate, Verified 11/03/18 21:16) Hives Penicillins Allergy (Intermediate, Verified 11/03/18 21:16) Irregular Heart Beat irregular heart beat, hives Home Medications: No Reportable Medications [No Reported Medications] 05/14/18 [History] Hx Tetanus, Diphtheria Vaccination/Date Given: Yes Hx Influenza Vaccination/Date Given: No Hx Pneumococcal Vaccination/Date Given: Yes Immunizations Up to Date: Yes - Review of Systems Constitutional: Lethargy, Weakness Eyes: No Symptoms Ears, Nose, & Throat: No Symptoms Respiratory: Cough, Dyspnea on Exertion (DHALIWAL) Cardiac: No Symptoms, Palpitations Abdominal/Gastrointestinal: No Symptoms, Abdominal Pain Genitourinary Symptoms: No Symptoms, Dysuria, Frequency Musculoskeletal: No Symptoms, Back Pain Skin: No Symptoms Neurological: No Symptoms Psychological: No Symptoms Endocrine: No Symptoms Hematologic/Lymphatic: No Symptoms - Past Medical History Pertinent Past Medical History: Yes Neurological History: No Pertinent History ENT History: No Pertinent History Cardiac History: No Pertinent History Respiratory History: No Pertinent History Endocrine Medical History: No Pertinent History Musculoskeletal History: Other GI Medical History: No Pertinent History History: No Pertinent History Psycho-Social History: No Pertinent History Male Reproductive Disorders: No Pertinent History Other Medical History: 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, ran over by a fork lift that crushed right side of body that 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 but didn't need it removed, PNE, "vegitation around heart valve"- 2 yrs ago - Past Surgical History Past Surgical History: Yes Neuro Surgical History: No Pertinent History Cardiac: Cardiac Catheterization Respiratory: No Pertinent History Gastrointestinal: No Pertinent History Genitourinary: No Pertinent History Musculoskeletal: No Pertinent History Male Surgical History: No Pertinent History Other Surgical History: Removed collar bone, multiple surgeries on arm recently d/t infection - Social History Smoking Status: Current every day smoker How long have you smoked: 27 years Exposure to second hand smoke: Yes Drug Use: marijuana, narcotics Patient Lives Alone: No - Nursing Vital Signs Nursing Vital Signs: Initial Vital Signs Temperature 100.8 F 11/03/18 21:04 Pulse Rate 123 H 11/03/18 21:04 Respiratory Rate 18 11/03/18 21:04 Blood Pressure 88/42 11/03/18 21:04 O2 Sat by Pulse Oximetry 97 11/03/18 21:04 Pain Scale Pain Intensity 8 - Physical Exam SpO2: 97 Ordered Tests: Active Orders 24 hr Category Date Time Status Manager Code STAT Care 11/03/18 21:22 Active Clean Catch Urine Specimen STAT Care 11/03/18 21:34 Active EKG-ER Only STAT Care 11/03/18 21:20 Active IV Insertion STAT Care 11/03/18 21:20 Active Oxygen-ED Only Nasal Cannula 2 lpm Care 11/03/18 21:34 Active Pulse Oximetry (ED) STAT Care 11/03/18 21:20 Active CHEST 1 VIEW (PORTABLE) Stat Exams 11/03/18 22:03 Taken BLOOD CULTURE Stat Lab 11/03/18 21:48 Ordered CBC W DIFF Stat Lab 11/03/18 21:20 Completed CMP Stat Lab 11/03/18 21:20 Completed D-DIMER QUANTITATION Stat Lab 11/03/18 21:20 Completed Lactic Acid Stat Lab 11/03/18 22:00 Completed Lactic Acid Stat Lab 11/04/18 00:08 Ordered Manual Differential NC Stat Lab 11/03/18 21:20 Completed PROTIME WITH INR Stat Lab 11/03/18 21:20 Completed TROPONIN Q3H Lab 11/03/18 21:20 Completed TROPONIN Q3H Lab 11/04/18 00:45 Ordered TROPONIN Q3H Lab 11/04/18 03:45 Ordered TROPONIN Q3H Lab 11/04/18 06:45 Ordered TROPONIN Q3H Lab 11/04/18 09:45 Ordered Urinalysis with Microscopy Stat Lab 11/03/18 23:53 Completed Urine Triage Profile Stat Lab 11/03/18 23:53 Received VENOUS BLOOD GAS Stat Lab 11/03/18 22:00 Completed Medication Summary Discontinued Medications Generic Name Dose Route Start Last Admin Trade Name Freq PRN Reason Stop Dose Admin Acetaminophen 650 mg 11/03/18 21:37 11/03/18 21:47 Tylenol 325 Mg PO 11/03/18 21:38 650 mg STAT STA Administration Acetaminophen Confirm 11/03/18 21:45 Tylenol 325 Mg Administered 11/03/18 21:46 Dose 650 mg .ROUTE .STK-MED ONE Enoxaparin Sodium 70 mg 11/03/18 22:20 11/03/18 22:51 Enoxaparin Sodium SQ 11/03/18 22:21 70 mg STAT ONE Administration Enoxaparin Sodium Confirm 11/03/18 22:49 Enoxaparin Sodium Administered 11/03/18 22:50 Dose 80 mg SQ .STK-MED ONE Sodium Chloride Confirm 11/03/18 21:20 Sodium Chloride 0.9% 1000 Ml Administered 11/03/18 21:21 Dose 1,000 mls @ ud .ROUTE .STK-MED ONE Sodium Chloride 1,000 mls @ 999 mls/hr 11/03/18 21:30 11/03/18 23:45 Sodium Chloride 0.9% 1000 Ml IV 11/04/18 00:30 Infused .Q1H1M NICK Infusion Sodium Chloride 1,000 mls @ 999 mls/hr 11/03/18 21:20 11/04/18 00:01 Sodium Chloride 0.9% 1000 Ml IV 11/03/18 22:20 100 mls/hr .Q1H1M STA Administration Ceftriaxone Sodium/Dextrose 2 g in 50 mls @ 100 mls/hr 11/03/18 22:19 22:51 Rocephin 2 Gm-D5w 50ml Bag IV 11/03/18 22:48 100 ml/hr STAT STA 100 mls/hr Administration Vancomycin HCl 1 gm in 250 mls @ 167 mls/hr 11/03/18 22:19 11/03/18 23:26 Vancomycin 1gm/ Ns 250ml IV 11/03/18 23:48 167 mls/hr STAT ONE Administration Ceftriaxone Sodium/Dextrose Confirm 11/03/18 22:49 Rocephin 2 Gm-D5w 50ml Bag Administered 11/03/18 22:50 Dose 2 g in 50 mls @ ud IV .STK-MED ONE Vancomycin HCl Confirm 11/03/18 23:19 Vancomycin 1gm/ Ns 250ml Administered 11/03/18 23:20 Dose 250 mls @ ud IV .STK-MED ONE Sodium Chloride Confirm 11/03/18 21:45 Sodium Chloride 0.9% 1000 Ml Administered 11/03/18 21:46 Dose 1,000 mls @ ud .ROUTE .STK-MED ONE Sodium Chloride Confirm 11/03/18 22:45 Sodium Chloride 0.9% 1000 Ml Administered 11/03/18 22:46 Dose 1,000 mls @ ud .ROUTE .STK-MED ONE Sodium Chloride Confirm 11/04/18 00:01 Sodium Chloride 0.9% 1000 Ml Administered 11/04/18 00:02 Dose 1,000 mls @ ud .ROUTE .STK-MED ONE Lab/Rad Data: Laboratory Result Diagrams 11/03/18 21:20 11/03/18 21:20 Laboratory Results 11/03/18 11/03/18 11/03/18 Range/Units 23:53 22:03 22:00 WBC (4.0-10.5) K/mm3 RBC (4.1-5.6) M/mm3 Hgb (12.5-18.0) gm/dl Hct (42-50) % MCV (78-100) fl MCH (26-32) pg MCHC (32-36) g/dl RDW (11.5-14.0) % Plt Count (150-450) K/mm3 Segmented Neutrophils (36.-66.) % Lymphocytes (Manual) (24-44) % Monocytes (Manual) (0.0-12.0) % Platelet Estimate (NORMAL) RBC Morphology PT (8.83-12.87) SECONDS INR (0.8-3.0) D-Dimer (215-500) ng/mL pO2/FiO2 Ratio 21.0 % VBG pH 7.42 (7.32-7.42) VBG pCO2 at Pat Temp 40 L (42-55) mm/Hg VBG pO2 at Pat Temp 46 H (25-40) mm/Hg VBG HCO3 25.9 (22-28) meq/L VBG O2 Sat (Sincere) 88.6 L (95-100) VBG Base Excess 1.3 (-2.0-2.0) VBG Hemoglobin 16.2 VBG Carboxyhemoglobin 2.5 (0.0-6.9) % T HGB POC Potassium 7.6 H* (3.5-5.1) Sodium (137-145) mmol/L Potassium (3.5-5.1) mmol/L Chloride (98-107) mmol/L Carbon Dioxide (22-30) mmol/L Anion Gap (5-15) MEQ/L BUN (9-20) mg/dL Creatinine (0.66-1.25) mg/dL Estimated GFR ML/MIN Glucose (74-106) mg/dL Lactic Acid (0.4-2.0) Calcium (8.4-10.2) mg/dL Total Bilirubin (0.2-1.3) mg/dL AST (17-59) U/L ALT (0-50) U/L Alkaline Phosphatase (38-126) U/L Troponin I (0.000-0.034) ng/mL Serum Total Protein (6.3-8.2) g/dL Albumin (3.5-5.0) g/dL Urine Color YELLOW (YELLOW) Urine Appearance SLIGHTLY CLOUDY (CLEAR) Urine pH 5.0 (5-6) Ur Specific [place] 1.013 (1.005-1.025) Urine Protein NEGATIVE (Negative) Urine Ketones NEGATIVE (NEGATIVE) Urine Blood MODERATE (0-5) Pravin/ul Urine Nitrite NEGATIVE (NEGATIVE) Urine Bilirubin NEGATIVE (NEGATIVE) Urine Urobilinogen 2 (0-1) mg/dL Ur Leukocyte Esterase NEGATIVE (NEGATIVE) Urine WBC (Auto) 6-10 (0-5) /HPF Urine RBC (Auto) NONE (0-2) /HPF U Epithel Cells (Auto) NONE (FEW) /HPF Urine Bacteria (Auto) NONE (NEGATIVE) /HPF Urine Mucus (Auto) SLIGHT (NEGATIVE) /HPF Urine Glucose NEGATIVE (NEGATIVE) mg/dL Influenza Type A Ag NEGATIVE (NEGATIVE) Influenza Type B Ag NEGATIVE (NEGATIVE) RSV (PCR) NEGATIVE (Negative) 11/03/18 11/03/18 11/03/18 Range/Units 22:00 21:20 21:20 WBC (4.0-10.5) K/mm3 RBC (4.1-5.6) M/mm3 Hgb (12.5-18.0) gm/dl Hct (42-50) % MCV (78-100) fl MCH (26-32) pg MCHC (32-36) g/dl RDW (11.5-14.0) % Plt Count (150-450) K/mm3 Segmented Neutrophils (36.-66.) % Lymphocytes (Manual) (24-44) % Monocytes (Manual) (0.0-12.0) % Platelet Estimate (NORMAL) RBC Morphology PT (8.83-12.87) SECONDS INR (0.8-3.0) D-Dimer [id number] H* (215-500) ng/mL pO2/FiO2 Ratio % VBG pH (7.32-7.42) VBG pCO2 at Pat Temp (42-55) mm/Hg VBG pO2 at Pat Temp (25-40) mm/Hg VBG HCO3 (22-28) meq/L VBG O2 Sat (Sincere) (95-100) VBG Base Excess (-2.0-2.0) VBG Hemoglobin VBG Carboxyhemoglobin (0.0-6.9) % T HGB POC Potassium (3.5-5.1) Sodium (137-145) mmol/L Potassium (3.5-5.1) mmol/L Chloride (98-107) mmol/L Carbon Dioxide (22-30) mmol/L Anion Gap (5-15) MEQ/L BUN (9-20) mg/dL Creatinine (0.66-1.25) mg/dL Estimated GFR ML/MIN Glucose (74-106) mg/dL Lactic Acid 3.1 H (0.4-2.0) Calcium (8.4-10.2) mg/dL Total Bilirubin (0.2-1.3) mg/dL AST (17-59) U/L ALT (0-50) U/L Alkaline Phosphatase (38-126) U/L Troponin I < 0.012 (0.000-0.034) ng/mL Serum Total Protein (6.3-8.2) g/dL Albumin (3.5-5.0) g/dL Urine Color (YELLOW) Urine Appearance (CLEAR) Urine pH (5-6) Ur Specific [place] (1.005-1.025) Urine Protein (Negative) Urine Ketones (NEGATIVE) Urine Blood (0-5) Pravin/ul Urine Nitrite (NEGATIVE) Urine Bilirubin (NEGATIVE) Urine Urobilinogen (0-1) mg/dL Ur Leukocyte Esterase (NEGATIVE) Urine WBC (Auto) (0-5) /HPF Urine RBC (Auto) (0-2) /HPF U Epithel Cells (Auto) (FEW) /HPF Urine Bacteria (Auto) (NEGATIVE) /HPF Urine Mucus (Auto) (NEGATIVE) /HPF Urine Glucose (NEGATIVE) mg/dL Influenza Type A Ag (NEGATIVE) Influenza Type B Ag (NEGATIVE) RSV (PCR) (Negative) 11/03/18 11/03/18 11/03/18 Range/Units 21:20 21:20 21:20 WBC 8.3 (4.0-10.5) K/mm3 RBC 3.12 L (4.1-5.6) M/mm3 Hgb 9.0 L (12.5-18.0) gm/dl Hct 26.3 L (42-50) % MCV 84.3 (78-100) fl MCH 28.8 (26-32) pg MCHC 34.2 (32-36) g/dl RDW 14.6 H (11.5-14.0) % Plt Count 65 L (150-450) K/mm3 Segmented Neutrophils 86 H (36.-66.) % Lymphocytes (Manual) 11 L (24-44) % Monocytes (Manual) 3 (0.0-12.0) % Platelet Estimate NORMAL (NORMAL) RBC Morphology NORMAL PT 19.7 H (8.83-12.87) SECONDS INR 1.72 (0.8-3.0) D-Dimer (215-500) ng/mL pO2/FiO2 Ratio % VBG pH (7.32-7.42) VBG pCO2 at Pat Temp (42-55) mm/Hg VBG pO2 at Pat Temp (25-40) mm/Hg VBG HCO3 (22-28) meq/L VBG O2 Sat (Sincere) (95-100) VBG Base Excess (-2.0-2.0) VBG Hemoglobin VBG Carboxyhemoglobin (0.0-6.9) % T HGB POC Potassium (3.5-5.1) Sodium 129 L (137-145) mmol/L Potassium 4.4 (3.5-5.1) mmol/L Chloride 93 L (98-107) mmol/L Carbon Dioxide 22 (22-30) mmol/L Anion Gap 18.2 H (5-15) MEQ/L BUN 100 H (9-20) mg/dL Creatinine 1.75 H (0.66-1.25) mg/dL Estimated GFR 46.4 ML/MIN Glucose 271 H (74-106) mg/dL Lactic Acid (0.4-2.0) Calcium 7.9 L (8.4-10.2) mg/dL Total Bilirubin 1.20 (0.2-1.3) mg/dL AST 85 H (17-59) U/L ALT 34 (0-50) U/L Alkaline Phosphatase 122 (38-126) U/L Troponin I (0.000-0.034) ng/mL Serum Total Protein 7.8 (6.3-8.2) g/dL Albumin 2.8 L (3.5-5.0) g/dL Urine Color (YELLOW) Urine Appearance (CLEAR) Urine pH (5-6) Ur Specific [place] (1.005-1.025) Urine Protein (Negative) Urine Ketones (NEGATIVE) Urine Blood (0-5) Pravin/ul Urine Nitrite (NEGATIVE) Urine Bilirubin (NEGATIVE) Urine Urobilinogen (0-1) mg/dL Ur Leukocyte Esterase (NEGATIVE) Urine WBC (Auto) (0-5) /HPF Urine RBC (Auto) (0-2) /HPF U Epithel Cells (Auto) (FEW) /HPF Urine Bacteria (Auto) (NEGATIVE) /HPF Urine Mucus (Auto) (NEGATIVE) /HPF Urine Glucose (NEGATIVE) mg/dL Influenza Type A Ag (NEGATIVE) Influenza Type B Ag (NEGATIVE) RSV (PCR) (Negative) - Progress Progress Note: 11/03/18 21:47 PLACED ON SEPSIS PROTOCOL 70KG/30ML-2000ML BOLUS OVER 2 HOURS AND AFTER 2 SETS OF BLOOD CULTURES OBTAINED, ROCEPHIN 2GM, VANCOMYCIN 1GM IVPB 11/03/18 22:21, LACTIC ACID -3.1, DDIMER-13,495, CBC WITH WBC-8,300, GFR 46, TOO LOW FOR CHEST CT INTRAVENOUS CONTRAST FOR R/O PULMONARY EMBOLISM - Departure Departure Disposition: Transfer Clinical Impression: ELEVATED DDIMER, , PNEUMONIA, SEPSIS Condition: Stable Critical Care Time: No Referrals: ALEXANDER GARCIA [Primary Care Provider] -
[2018-11-03 22:08] LABS: Lactic Acid 3.1 (0.4-2.0)
[2018-11-03 22:10] LABS: VBG BASE EXCESS 1.3 (-2.0-2.0); VBG CARBOXYHEMOGLOBIN 2.5 % T HGB (0.0-6.9); VBG HCO3- 25.9 meq/L (22-28); VBG HEMOGLOBIN 16.2; VBG O2 SATURATION 88.6 (95-100); VBG pH 7.42 (7.32-7.42)
[2018-11-03 22:13] LABS: VBG POTASSIUM 7.6 (3.5-5.1)
[2018-11-03] MEDS ORDERED: Vancomycin 1GM/ Ns 250ML*** 1 GM/250 ML IVPB IV ONE (22:19)
[2018-11-03] MEDS ORDERED: ROCEPHIN 2 Gm-D5w 50ML BAG** 2 G/50 ML IVPB IV STA (22:19)
[2018-11-03] MEDS ORDERED: ENOXAPARIN SODIUM SQ ONE ×2 (22:20→22:49)
[2018-11-03 22:47] LABS: INFLUENZA A NEGATIVE (NEGATIVE); INFLUENZA B NEGATIVE (NEGATIVE); RESPIRATORY SYNCTIAL VIRUS NEGATIVE (Negative)
[2018-11-03] MEDS ORDERED: ROCEPHIN 2 Gm-D5w 50ML BAG** 2 G/50 ML IVPB IV ONE (22:49)
[2018-11-03] MEDS ORDERED: Vancomycin 1GM/ Ns 250ML*** 250 ML IV ONE (23:19)
[2018-11-03 23:43] VITALS: BP 95/49; PULSE 112; O2SAT 97
[2018-11-04] MEDS ORDERED: Sodium Chloride 0.9% 1000 ML 1,000 ML ONE (00:01)
[2018-11-04 00:02] LABS: Appearance SLIGHTLY CLOUDY (CLEAR); Bilirubin NEGATIVE (NEGATIVE); Blood MODERATE Ery/ul (0-5); Glucose NEGATIVE (NEGATIVE); Ketones NEGATIVE (NEGATIVE); Leukocyte Esterase NEGATIVE (NEGATIVE); Mucus SLIGHT /HPF (NEGATIVE); Nitrite NEGATIVE (NEGATIVE); Protein,Urine Dip NEGATIVE (Negative); Specific Gravity 1.013 (1.005-1.025); Urobilinogen 2 mg/dL (0-1)
[2018-11-04 00:12] LABS: Lymphocytes 11 % (24-44); Monocyte 3 % (0.0-12.0); Neutrophils 86 % (36.-66.); Platelet Estimate NORMAL (NORMAL); Total Cells Counted 100
[2018-11-04 00:14] LABS: Barbiturate,Urine NEGATIVE (NEGATIVE); Benzodiazepine,Urine NEGATIVE (NEGATIVE); Cocaine,Urine NEGATIVE (NEGATIVE); Methadone,Urine NEGATIVE (NEGATIVE); Opiate,Urine NEGATIVE (NEGATIVE); PCP,Urine NEGATIVE (NEGATIVE); THC,Urine NEGATIVE (NEGATIVE)
[2018-11-04 00:44] LABS: Amphetamine,Urine POSITIVE (NEGATIVE)
--- NOTE | 2018-11-04 08:57 | XRAY ---
Indication: Fever and cough 6 weeks. Comparison: February 05, 2016. Portable apical lordotic chest again demonstrates bilateral patchy airspace opacities on a background of nodularity. CT chest may yield further information if clinically warranted. Remaining heart, lungs, and bony thorax unremarkable.
== END 2018-11-04 00:20 | disposition short-term general hospital (02) ==
LOC: ED 20:53
DX: R79.1 Abnormal coagulation profile (principal); J18.9 Pneumonia, unspecified organism; A41.9 Sepsis, unspecified organism; R50.9 Fever, unspecified; R42 Dizziness and giddiness
CPT/HCPCS: 36000; 36415; 71045; 80053; 80307; 81001; 82805; 83605; 84484; 85025; 85379; 85610; 87040; 87077; 87186; 87631; 93005; 93041; 94760; 96360; 96361; 96365; 96367; 96372; 99285; J0696; J1650; J3370; A9270-GY

== ENCOUNTER 2019-01-29 22:12 | Emergency (ER) | payer OTHER ==
[2019-01-29 22:30] VITALS: O2SAT 99
--- NOTE | 2019-01-29 23:32 | ERPHSYRPT ---
- History of Present Illness Time Seen by Provider: 01/29/19 23:05 Source: patient, family (Mother) Exam Limitations: other (Patien argumentative with his mother. She says he was discharged from [place] on a and told to check in at [facility]ter on the following Wednesday. That was two or four weeks ago (depending on who is correct) Has been out of pain meds since. Says he has cardiac issues.) Patient Subjective Stated Complaint: Pt here for back pain. Pt states he has a bulging disc at L15 and L16, a hernia, and endocarditis Triage Nursing Assessment: Pt arrived via ambulance and transferred to bed with assist of 3. Pt screaming out in pain, crying, cursing. Alert and oriented. Lungs clear throughout. Skins pink, warm, and dry Physician History: came in by EMS; very disruptive with them and with RN on intake; apparently out of pain meds for chronic LBP for two weeks. Has recently been hospitlized - Mom says was in about a month ago elsewhere with Pneumonia. Was scheduled to go to [facility] center after a recent discharge but failed to do so. C/O back pain and poor health - Mom worried he may still be ill following the Pneumonia. Allergies/Adverse Reactions: codeine [Codeine] Allergy (Intermediate, Verified 11/03/18 21:16) Hives Penicillins Allergy (Intermediate, Verified 11/03/18 21:16) Irregular Heart Beat irregular heart beat, hives Home Medications: No Reportable Medications [No Reported Medications] 05/14/18 [History] Hx Tetanus, Diphtheria Vaccination/Date Given: Yes Hx Influenza Vaccination/Date Given: No Hx Pneumococcal Vaccination/Date Given: Yes - Review of Systems Constitutional: No Symptoms Respiratory: No Symptoms Abdominal/Gastrointestinal: Abdominal Pain All Other Systems: Reviewed and Negative - Past Medical History Pertinent Past Medical History: Yes Neurological History: No Pertinent History ENT History: No Pertinent History Cardiac History: Other Respiratory History: No Pertinent History Endocrine Medical History: No Pertinent History Musculoskeletal History: Other GI Medical History: No Pertinent History History: No Pertinent History Psycho-Social History: Depression Male Reproductive Disorders: No Pertinent History Other Medical History: 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, 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, PNE, "vegitation around heart valve"- 2 yrs ago, bulging disc L15, L16, endocarditis, hernia - Past Surgical History Past Surgical History: Yes Neuro Surgical History: No Pertinent History Cardiac: Cardiac Catheterization Respiratory: No Pertinent History Gastrointestinal: No Pertinent History Genitourinary: No Pertinent History Musculoskeletal: No Pertinent History Male Surgical History: No Pertinent History Other Surgical History: Removed collar bone, multiple surgeries on arm recently d/t infection - Social History Smoking Status: Current every day smoker How long have you smoked: 30 years Exposure to second hand smoke: Yes Drug Use: marijuana, narcotics Patient Lives Alone: No - Nursing Vital Signs Nursing Vital Signs: Initial Vital Signs Temperature 98.5 F 01/29/19 22:16 Pulse Rate 117 H 01/29/19 22:16 Respiratory Rate 22 01/29/19 22:16 Blood Pressure 129/103 01/29/19 22:16 O2 Sat by Pulse Oximetry 99 01/29/19 22:16 Pain Scale Pain Intensity [Posterior Back 10 ] Pain Intensity 10 - Physical Exam General Appearance: mild distress (becomes angry with his mother - argumentative ) Eye Exam: eyes nml inspection Ears, Nose, Throat Exam: pharynx normal, moist mucous membranes Neck Exam: normal inspection, non-tender, supple, full range of motion Respiratory Exam: normal breath sounds, lungs clear, airway intact, No respiratory distress Cardiovascular Exam: regular rate/rhythm, normal heart sounds, normal peripheral pulses, No edema Gastrointestinal/Abdomen Exam: soft, normal bowel sounds Extremity Exam: normal inspection, normal range of motion Neurologic Exam: alert, oriented x 3, uncooperative (alternating between cooperative and uncooperativ/argumentative) Skin Exam: normal color, warm, dry SpO2 Interpretation: normal SpO2: 99 O2 Delivery: Room Air - Course Nursing assessment & vital signs reviewed: Yes Ordered Tests: Active Orders 24 hr Category Date Time Status CHEST 1 VIEW (PORTABLE) Stat Exams 01/29/19 23:31 Taken CBC W DIFF Stat Lab 01/29/19 23:54 Completed CMP Stat Lab 01/29/19 23:54 Completed TROPONIN Q3H Lab 01/29/19 23:54 Completed Medication Summary Discontinued Medications Generic Name Dose Route Start Last Admin Trade Name Freq PRN Reason Stop Dose Admin Hydromorphone HCl 1 mg 01/30/19 02:00 01/30/19 02:11 Dilaudid 2 Mg Injection IM 02/04/19 01:59 1 mg Q4H PRN PRN Administration PAIN Hydromorphone HCl Confirm 01/30/19 02:08 Hydromorphone 1 Mg/Ml Ampule Administered 01/30/19 02:09 Dose 1 mg .ROUTE .STK-MED ONE Ondansetron HCl 4 mg 01/30/19 02:03 01/30/19 02:11 Zofran Odt 4 Mg PO 01/30/19 02:04 4 mg STAT ONE Administration Ondansetron HCl Confirm 01/30/19 02:08 Zofran Odt 4 Mg Administered 01/30/19 02:09 Dose 4 mg .ROUTE .STK-MED ONE Oxycodone/Acetaminophen 2 tab 01/30/19 02:45 01/30/19 02:57 Oxycodone-Acetaminophen 10-325 PO 01/30/19 02:46 2 tab SENT HOME W/ PATIENT STA Administration Oxycodone/Acetaminophen Confirm 01/30/19 02:50 Oxycodone-Acetaminophen 10-325 Administered 01/30/19 02:51 Dose 2 tab .ROUTE .STK-MED ONE Lab/Rad Data: Laboratory Result Diagrams 01/29/19 23:54 01/29/19 23:54 Laboratory Results 01/29/19 01/29/19 01/29/19 Range/Units 23:54 23:54 23:54 WBC 6.6 (4.0-10.5) K/mm3 RBC 3.72 L (4.1-5.6) M/mm3 Hgb 10.3 L (12.5-18.0) gm/dl Hct 32.5 L (42-50) % MCV 87.4 (78-100) fl MCH 27.6 (26-32) pg MCHC 31.7 L (32-36) g/dl RDW 17.2 H (11.5-14.0) % Plt Count 231 (150-450) K/mm3 MPV 8.9 (6-9.5) fl Gran % 95.9 H (36.0-66.0) % Eos # (Auto) 0.01 (0-0.5) Absolute Lymphs (auto) 0.19 L (1.0-4.6) Absolute Monos (auto) 0.05 (0.0-1.3) Lymphocytes % 2.9 L (24.0-44.0) % Monocytes % 0.8 (0.0-12.0) % Eosinophils % 0.2 (0.00-5.0) % Basophils % 0.2 (0.0-0.4) % Absolute Granulocytes 6.29 (1.4-6.9) Basophils # 0.01 (0-0.4) Sodium 137 (137-145) mmol/L Potassium 4.0 (3.5-5.1) mmol/L Chloride 105 (98-107) mmol/L Carbon Dioxide 20 L (22-30) mmol/L Anion Gap 15.6 H (5-15) MEQ/L BUN 16 (9-20) mg/dL Creatinine 0.85 (0.66-1.25) mg/dL Estimated GFR > 60.0 ML/MIN Glucose 142 H (74-106) mg/dL Calcium 9.3 (8.4-10.2) mg/dL Total Bilirubin 1.00 (0.2-1.3) mg/dL AST 137 H (17-59) U/L ALT 51 H (0-50) U/L Alkaline Phosphatase 180 H (38-126) U/L Troponin I 0.012 (0.000-0.034) ng/mL Serum Total Protein 8.8 H (6.3-8.2) g/dL Albumin 3.5 (3.5-5.0) g/dL - Progress Progress: improved Progress Note: 01/30/19 04:14 Advised all labs essentially normal; no signs of emergent situation at this time. Patient wants pain medication and will call his mother to take him home. - Departure Departure Disposition: Home Clinical Impression: Low back pain Qualifiers: Chronicity: acute Back pain laterality: midline Sciatica presence: without sciatica Qualified Code(s): M54.5 - Low back pain Condition: Stable Critical Care Time: No Referrals: ALEXANDER GARCIA [Primary Care Provider] - Instructions: Low Back Pain (DC) Additional Instructions: Take the percocet not before 5 in the morning and may repeat in 6 hours. Must follow up with a primary care provider or pain medical sales specialist for any further chronic pain medications.
[2019-01-29 23:57] LABS: Absolute Neutrophil Ct (ANC) 6.29 (1.4-6.9); BASOPHIL % 0.2 % (0.0-0.4); Basophil (Absolute #) 0.01 (0-0.4); Eosinophil % 0.2 % (0.00-5.0); Eosinophil (Absolute #) 0.01 (0-0.5); Hematocrit 32.5 % (42-50); Hemoglobin 10.3 gm/dl (12.5-18.0); Lymphocyte (Absolute #) 0.19 (1.0-4.6); Lymphocytes % 2.9 % (24.0-44.0); Mean Cell Volume 87.4 fl (78-100); Mean Corpuscular Hgb Concent. 31.7 g/dl (32-36); Mean Platelet Volume 8.9 fl (6-9.5); Monocyte (Absolute #) 0.05 (0.0-1.3); Monocytes % 0.8 % (0.0-12.0); Neutrophil % 95.9 % (36.0-66.0); Platelet Count 231 K/mm3 (150-450); Red Blood Count 3.72 M/mm3 (4.1-5.6); Red Cell Distribution Width 17.2 % (11.5-14.0); White Blood Count 6.6 K/mm3 (4.0-10.5)
[2019-01-30 00:05] LABS: Mean Corpuscular Hemoglobin 27.6 pg (26-32)
[2019-01-30 00:10] LABS: ALBUMIN 3.5 g/dL (3.5-5.0); ALKALINE PHOSPHATASE 180 U/L (38-126); ANION GAP 15.6 MEQ/L (5-15); BLOOD UREA NITROGEN 16 mg/dL (9-20); CHLORIDE 105 mmol/L (98-107); Calcium 9.3 mg/dL (8.4-10.2); Carbon Dioxide 20 mmol/L (22-30); Creatinine 1 0.85 mg/dL (0.66-1.25); Glucose 142 mg/dL (74-106); SGOT/AST 137 U/L (17-59); SGPT/ALT 51 U/L (0-50); SODIUM 137 mmol/L (137-145); Total Protein 8.8 g/dL (6.3-8.2)
[2019-01-30] MEDS ORDERED: DILAUDID 2 MG INJECTION IM PRN (02:00)
[2019-01-30] MEDS ORDERED: ZOFRAN ODT 4 MG PO ONE (02:03)
[2019-01-30] MEDS ORDERED: Hydromorphone 1 mg/ml Ampule ONE (02:08)
[2019-01-30] MEDS ORDERED: ZOFRAN ODT 4 MG ONE (02:08)
[2019-01-30] MEDS ORDERED: OXYCODONE-ACETAMINOPHEN 10-325 PO STA (02:45)
[2019-01-30] MEDS ORDERED: OXYCODONE-ACETAMINOPHEN 10-325 ONE (02:50)
[2019-01-30 03:25] VITALS: BP 118/89; PULSE 112
--- NOTE | 2019-01-30 09:05 | XRAY ---
Indication: Chest pain. Comparison: November 03, 2018. Portable chest slightly underinflated with previous bilateral nodules less apparent and new right base atelectasis/scarring. Remaining heart and lungs unremarkable. Bony thorax intact again with absent right clavicle head.
== END 2019-01-30 03:20 | disposition home or self-care (01) ==
LOC: ED 22:12
DX: M54.5 Low back pain (principal)
CPT/HCPCS: 36415; 71045; 80053; 84484; 85025; 96372; 99284; J1170; Q0162; A9270-GY

== ENCOUNTER 2019-02-17 03:32 | Emergency (ER) | payer OTHER ==
[2019-02-17] MEDS ORDERED: EPINEPHRINE ABBOJECT 1 MG IV ONE (03:33)
--- NOTE | 2019-02-17 03:59 | ERPHSYRPT ---
- History of Present Illness Time Seen by Provider: 02/17/19 03:33 Source: EMS Physician History: Brought in by EMS with CPR in progress, intubated. Per EMS - pt was found down by mom, after he screamed for help and was vomiting blood from his mouth. Blood in pt's mouth. Pt unresponsive. CPR in progress.We continued with ACLS. Gave 3 rounds of Epi. No response. Pt remained in asystole. Per EMS - pt had pulse when they reached at the scene Timing/Duration: other (Just [employer]) Allergies/Adverse Reactions: codeine [Codeine] Allergy (Intermediate, Verified 11/03/18 21:16) Hives Penicillins Allergy (Intermediate, Verified 11/03/18 21:16) Irregular Heart Beat irregular heart beat, hives Home Medications: No Reportable Medications [No Reported Medications] 05/14/18 [History] Hx Tetanus, Diphtheria Vaccination/Date Given: Yes Hx Influenza Vaccination/Date Given: No Hx Pneumococcal Vaccination/Date Given: Yes - Review of Systems All Other Systems: Unable due to condition (CPR in progress) - Past Medical History Pertinent Past Medical History: Yes Neurological History: No Pertinent History ENT History: No Pertinent History Cardiac History: Other Respiratory History: No Pertinent History Endocrine Medical History: No Pertinent History Musculoskeletal History: Other GI Medical History: No Pertinent History History: No Pertinent History Psycho-Social History: Depression Male Reproductive Disorders: No Pertinent History Other Medical History: 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, 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, PNE, "vegitation around heart valve"- 2 yrs ago, bulging disc L15, L16, endocarditis, hernia - Past Surgical History Past Surgical History: Yes Neuro Surgical History: No Pertinent History Cardiac: Cardiac Catheterization Respiratory: No Pertinent History Gastrointestinal: No Pertinent History Genitourinary: No Pertinent History Musculoskeletal: No Pertinent History Male Surgical History: No Pertinent History Other Surgical History: Removed collar bone, multiple surgeries on arm recently d/t infection - Social History Smoking Status: Current every day smoker How long have you smoked: 30 years Exposure to second hand smoke: Yes Drug Use: marijuana, narcotics Patient Lives Alone: No - Physical Exam General Appearance: other (Unresponsive) Eye Exam: other (Dilated and Fixed) Respiratory Exam: other (Pt intubated. No spontaneous respiration) Cardiovascular Exam: other (Asystole) Neurologic Exam: other (Unresponsive) - Course Nursing assessment & vital signs reviewed: Yes - Progress Progress Note: Pt remained unresponsive, pupils dilated and fixed. No Heart sounds, No pulse, no respiration. Pt declared at 342 AM. Family came at 350 AM. Notified them. Time : 311- 911 call came in 314- Police reached the home 317- EMS reached home 333 - EMS in ER 342 - Pt declared 352- Family notified 02/17/19 04:07 02/17/19 04:12 See Nurse's note for other details - Departure Departure Disposition: Clinical Impression: Cardiac arrest Condition: Critical Care Time: No Additional Instructions: Critical care was only for 9 mins
[2019-02-17] MEDS ORDERED: Sodium Chloride 0.9% 1000 ML 1,000 ML ONE (05:45)
== END 2019-02-17 03:42 | disposition expired ==
LOC: ED 03:32
DX: I46.9 Cardiac arrest, cause unspecified (principal)
CPT/HCPCS: 96374; 96376; 99283; J0171